=== PATIENT | male | born 1995 | race Caucasian/White ===

== ENCOUNTER 2021-01-11 13:33 | Emergency (ER) | payer OTHER ==
[~2021-01-11] VITALS: Ht 167.6 cm; Wt 59.0 kg
[2021-01-11] MEDS ORDERED: MELATONIN10 MG (13:39)
[2021-01-11] MEDS ORDERED: LAMOTRIGINE100 MG (13:39)
[2021-01-11] MEDS ORDERED: RISPERDAL4 MG (13:39)
[2021-01-11] MEDS ORDERED: SERTRALINE HCL50 MG PO (13:40)
[2021-01-11] MEDS ORDERED: INTUNIV1 MG (13:41)
[2021-01-11] MEDS ORDERED: HYDROXYZINE HCL50 MG (13:41)
[2021-01-11] MEDS ORDERED: NAPROXEN375 MG PO (22:32)
[2021-01-21] MEDS ORDERED: PROTONIX40 MG PO (15:54)
[2021-01-21] MEDS ORDERED: NEURONTIN300 MG PO (15:54)
[2021-01-21] MEDS ORDERED: INTESTINEX680 M1 PO (15:55)
[2021-01-21] MEDS ORDERED: POLY119PG PO (15:56)
[2021-01-21] MEDS ORDERED: AMOX-CLAV 875-1 EAC1 PO (15:56)
[2021-01-21] MEDS ORDERED: INTEGRA PLUS C1 EACH PO (15:59)
== END 2021-01-11 22:39 | disposition home or self-care (01) ==
LOC: ER 13:33
DX: K40.90 Unilateral inguinal hernia, without obstruction or gangrene, not specified as recurrent (principal); I88.0 Nonspecific mesenteric lymphadenitis

== ENCOUNTER 2021-01-13 08:07 | Inpatient (IN) | payer OTHER ==
[~2021-01-13] VITALS: Ht 167.6 cm; Wt 61.2 kg
[~2021-01-13 08:07] MED LIST: HYDROXYZINE HCL50 MG; INTUNIV1 MG; LAMOTRIGINE100 MG; MELATONIN10 MG; NAPROXEN375 MG PO; RISPERDAL4 MG; SERTRALINE HCL50 MG PO
[2021-01-21] MEDS ORDERED: NEURONTIN300 MG PO ×2 (15:54)
[2021-01-21] MEDS ORDERED: PROTONIX40 MG PO ×2 (15:54)
[2021-01-21] MEDS ORDERED: INTESTINEX680 M1 PO ×2 (15:55)
[2021-01-21] MEDS ORDERED: POLY119PG PO ×2 (15:56)
[2021-01-21] MEDS ORDERED: AMOX-CLAV 875-1 EAC1 PO ×2 (15:56)
[2021-01-21] MEDS ORDERED: INTEGRA PLUS C1 EACH PO ×2 (15:59)
== END 2021-01-21 16:56 | disposition home or self-care (01) | DRG 394 ==
LOC: ER 08:07 → MEDI 19:40 → SEC-K 19:40 → MEDJ 19:40 → MEDI 21:54 → MEDJ 01-17 10:22
PROVIDERS: ADMIT Internal Medicine; ATTEND Internal Medicine
PROC: 07DJ3ZX Extraction of Left Inguinal Lymphatic, Percutaneous Approach, Diagnostic (ICD-10-PCS; principal; 2021-01-14)
DX: I88.0 Nonspecific mesenteric lymphadenitis (principal); F84.5 Asperger's syndrome; G40.909 Epilepsy, unspecified, not intractable, without status epilepticus; E86.0 Dehydration; K37 Unspecified appendicitis; D50.8 Other iron deficiency anemias

== ENCOUNTER → 2021-02-03 09:18 | Outpatient (CLI) | payer OTHER ==
[~2021-02-03 09:18] MED LIST changes: +AMOX-CLAV 875-1 EAC1 PO; +INTEGRA PLUS C1 EACH PO; +INTESTINEX680 M1 PO; +NEURONTIN300 MG PO; +POLY119PG PO; +PROTONIX40 MG PO
== END | disposition home or self-care (01) ==
LOC: NUCLEAR 09:00
PROVIDERS: ATTEND Internal Medicine
DX: C81.98 Hodgkin lymphoma, unspecified, lymph nodes of multiple sites (principal)
CPT/HCPCS: 78816; A9552